=== PATIENT | female | born 1950 | race African-American/Black ===

== ENCOUNTER 2019-08-05 08:56 | Inpatient (IN) | payer BC, MEDICARE ==
[2019-08-02 09:34] LABS: ABSOLUTE BASOPHILS 0.1 thou/uL (0.0-0.2); ABSOLUTE EOSINOPHILS 0.1 thou/uL (0.0-0.7); ABSOLUTE LYMPHOCYTES 1.9 thou/uL (0.8-5.3); ABSOLUTE MONOCYTES 0.7 thou/uL (0.0-1.2); ABSOLUTE NEUTROPHILS 8.6 thou/uL (1.6-8.1); EOSINOPHILS 1.1 %; HEMOGLOBIN 12.5 gm/dL (12.0-15.0); LYMPHOCYTES 16.7 %; MCH 26.8 pg (26.0-34.0); MCHC 33.9 g/dL (28.0-37.0); MCV 79.2 fL (80.0-100.0); MONOCYTES 6.3 %; MPV 9.9 fl. (7.2-11.1); NUCLEATED RBCS 0 /100WBC; PLATELET COUNT* 219 thou/uL (150-400); POLYS 74.9 %; RBC 4.68 mil/uL (4.20-5.00); RDW-CV 14.4 % (10.5-14.5); WBC 11.5 thou/uL (4.0-11.0)
[2019-08-02 09:41] LABS: CALCIUM 9.5 mg/dL (8.5-10.1); CREATININE 1.3 mg/dL (0.6-1.3); POTASSIUM 3.5 mmol/L (3.5-5.1)
[2019-08-02 09:46] LABS: ALBUMIN 3.1 g/dL (3.4-5.0); TOTAL BILIRUBIN 0.4 mg/dL (<0.1-1.0); TOTAL PROTEIN 7.1 g/dL (6.4-8.2)
[2019-08-03 02:07] LABS: GLYCOHEMOGLOBIN (HGB A1C) 7.5 % (4.8-5.6)
[~2019-08-05] VITALS: Ht 165.1 cm; Wt 140.6 kg
[~2019-08-05 08:56] MED LIST: AMBIEN 5 MG TABL5 MG PO; AMLODIPINE BESY10 MG PO; CYMBALTA60 MG PO; HUMALOG100 UNIT/1 SUBQ; LANTUS100 UNIT/M SUBQ; LOPRESSOR50 PO; PROTONIX40 M1 PO; ROSUVASTATIN CA10 MG PO; SYNTHROID100 MC1 PO; TRAMADOL 50 MG50 MG PO; VENTOLIN HFA 1818 GM INH; ZESTORETIC 20-1 EAC2 PO
[2019-08-05 09:30] VITALS: BP 154/88
--- NOTE | 2019-08-05 10:59 | EKG ---
[place] [address] ELECTROCARDIOGRAM REPORT Name: CALABRESEJAYANTNEGRITA E Room: [facility]#: [id number] Admission: 08/05/19 Attend Phys: Priya Mendoza Discharge: Date of : 54 Report #: [id number] THIS REPORT FOR: //name// [facility] Test Date: 2019-08-02 Test Time: 09:29:50 Pat Name: NEGRITA CALABRESE Department: Room: Gender: F Skip Locator: UNKNOWN : 1950 Requested By: Michael Hook Order Number: [id number] Denis MD: Koby Paz Measurements Intervals [place] Rate: 79 P: 35 ND: 234 QRS: -8 QRSD: 112 T: 91 QT: 445 QTc: 511 Interpretive Statements Sinus rhythm Atrial premature complexes Prolonged ND interval Consider anterior infarct No previous ECG available for comparison Electronically Signed On 08-05-2019 10:59:02 CDT by Koby Paz [email or web address] <ELECTRONICALLY SIGNED> By: Koby Paz MD, [facility] 08/05/19 1059 0929 09 Koby Paz MD, FACC /EPI
[2019-08-05 15:27] VITALS: BP 156/56
--- NOTE | 2019-08-05 15:56 | NUR ---
PT ADMITTED TO UNIT WITH LT KNEE REPLACEMENT. PT ALERT AND ORIENTED AND DROWSY. PT ON 3 LITERS O2 WITH CAPNO IN PLACE. LUNGS CLEAR AND DIMINISHED. HEART RATE REGULAR, HX HTN. PULSES 2+ ALL EXREMITIES. TA HOSE ON BILAT. ICE PACK TO LT KNEE. SCD IN PLACE. INCISION LT KNEE, DRESSING C/D/I. FALL RISK PRECAUTIONS IN PLACE. HOURLY ROUNDING COMPLETED. WILL CONTINUE TO MONITOR.
--- NOTE | 2019-08-05 16:13 | OP ---
[facility] [address] [place] [address] OPERATIVE REPORT Name: NEGRITA CALABRESE Room: [address] IN ..#: [id number] Admission: 08/05/19 Attend Phys: Priya Mendoza Discharge: Date of : 54 Report #: [id number] THIS REPORT FOR: //name// CC: Sky Hook DATE OF SERVICE: 08/05/2019 Cisco Sullivan DO dictating operative report on behalf of Dr. Sky Johnson. PREOPERATIVE DIAGNOSIS: Left knee severe degenerative joint disease. POSTOPERATIVE DIAGNOSIS: Left knee severe degenerative joint disease. OPERATION PERFORMED: Left total knee arthroplasty. SURGEON: Sky Johnson DO. ASSISTANTS: Sandra Wade PA-C; Cisco Sullivan DO; and Rowdy Melara DO. Multiple assistants were required throughout the procedure due to the patient's morbid obesity, body habitus. Skilled assistants were required for retraction and assistance as well as closure. ANESTHESIA: General plus local injection. ANTIBIOTICS: 3 grams IV Ancef given preoperatively. ESTIMATED BLOOD LOSS: 150 mL. COMPLICATIONS: None. SPECIMENS: None. COMPLICATIONS: None. CONDITION: Stable. DISPOSITION: PACU to Med/Surg floor. OPERATIVE INDICATIONS: The patient is a pleasant 68-year-old female who has been followed in orthopedic clinic regarding her left knee pain. Radiographs which were consistent with severe degenerative changes with loss of joint space, subchondral sclerosis, osteophytic lipping. She had undergone conservative treatment in the last several years with [place] [address] OPERATIVE REPORT Name: NEGRITA CALABRESE Room: [address] IN [facility].#: [id number] Admission: 08/05/19 Attend Phys: Priya Mendoza Discharge: Date of : 54 Report #: [id number] as well as intra-articular injections and activity modifications and therapies. Despite turn all these things, she get progressive symptoms, which are interfering with her activities of daily living. We did discuss with her total knee arthroplasty including the risks and benefits as well as the other treatment alternatives. Informed consent was signed and attached to the chart. DESCRIPTION OF PROCEDURE: The patient was identified in the preoperative holding area where the left knee was confirmed to be the operative site and marked. She was transferred to the operating suite and placed on the operating table in supine position where general anesthesia was then induced. A well-padded pneumatic tourniquet was placed in the left proximal thigh. This was inflated at 295 mmHg throughout the procedure for a total of 53 minutes. The left lower extremity was then sterilely prepped and draped in the usual fashion. A time-out was then performed confirming our safety checklist had been completed and all the OR personnel were in agreement. A standard midline incision was marked out over the anterior aspect of the knee. Sharp dissection was then carried down through the skin and subcutaneous tissue down to the level of the capsule. A new scalpel was then used to make a standard medial parapatellar arthrotomy. A large portion of the infrapatellar fat pad was excised at this time. The patella was then everted. The knee was hyperflexed. Hohmann retractors were placed. We gained access to her femur intramedullary canal with the large drill. Our distal femur cutting block was then placed within the intramedullary guide set to resect 10 mm from the distal femur at 5 degrees of valgus. This was pinned into position and the cut was made through the capture block. Bony wafers were then removed. Attention was then taken to the proximal tibia. The extramedullary tibial guide was aligned in all planes. This was set to resect 8 mm from the lateral high side. The cutting block was pinned into position. Appropriate retractors were placed to protect the collateral ligaments as well as popliteal structures. The cut was then made through the capture block and the bony wafer was removed. At this time, we checked our extensor space with the 10 mm extension block, which was found to fit appropriately with some tightness medially. Therefore, all the pins were removed. At this time, we sized the distal femur. We decreased the amount of external rotation as there was more wear on her medial posterior condyle. The femur sized to a 67.5. The appropriate external rotation holes were drilled. The 4-in-1 cutting block was then impacted on to the distal femur. We then sequentially made our cuts through the block beginning with the anterior cut followed by the posterior condylar cut and then anterior and posterior chamfer cuts. These bony wafers were then removed. The box cutting guide was then impacted onto the distal femur and the reaming system was utilized to resect the bone for the box. The excess osteophytes from both the femur and the tibia were removed with a rongeur. The medial collateral ligament was released and utilized an 18 gauge needle, which did give a nice subtle release from the medial side. We then sized the proximal tibia to the appropriate size and the tibial baseplate trial was pinned into position into the appropriate rotation. The trial femur component was then impacted on to the distal femur followed by [address] [place] [address] OPERATIVE REPORT Name: NEGRITA CALABRESE Room: [address]#: [id number] Admission: 08/05/19 Attend Phys: Priya Mendoza Discharge: Date of : 54 Report #: [id number] sequential trialing of different sized spacers. Attention was taken to the patella. There were significant degenerative changes. Therefore, we did proceed with resurfacing. The osteophytes were removed with the rongeur. The Jammcard reaming system was utilized to a 14 mm thickness which left us with a nice flush cut surface. The patellar peg holes were then drilled through the guide and the patellar button was placed through full range of motion and found to have excellent tracking. At this time, the trial patella and femoral components were removed. The tibia was prepared for final implantation with the reamer and punch. The bony cut surfaces were then copiously irrigated. A small drill was used on the medial side of the tibial plateau to improve cement interdigitation as there was significant sclerotic bone here. The anesthetic cocktail was injected into the posterior capsular structures. The bone cement was mixed on the back table and applied to the back surface of the final components. The bony cut surfaces were dried and then the final components were impacted into position, beginning with the tibia, followed by the femur and finally put the patella button, which was clamped into position. All the excess bone cement was removed. At 10 mm spacer was trialed and found to be slightly loose, 12 mm was slightly tight in both flexion and extension; therefore, we did proceed with placing our 11 mm final spacer. This was locked into position with locking bar. The knee was copiously irrigated and vancomycin powder was sprinkled throughout. The tourniquet was deflated at this time. The knee was placed in 90 degrees of flexion and a layered closure was performed with #1 Vicryl suture on the capsular layer. This was then oversewn with a #1 Quill suture. A 2-0 Monocryl suture was used on the deep subcutaneous layer and superficial subcutaneous layers. A running 3-0 Stratafix was used on the subcuticular layer. Skin glue was applied and allowed to dry, followed by application of a sterile Mepilex dressing. Thigh high TA hose were applied over the incision. The patient was awakened from general anesthetic and found to have tolerated the procedure well and was transferred to the PACU. Sponge and needle counts reported correct for the OR personnel. ATTESTATION: Dr. Sky Johnson was present for all critical aspects of surgery. <ELECTRONICALLY SIGNED> By: Sky Johnson DO 08/05/19 1613 1341 [id number] Johnson DO /nt
--- NOTE | 2019-08-05 18:17 | NUR ---
PT REMAINED ALERT AND ORIENTED AND DROWSY. PAIN MEDS GIVEN ORDERED. PT HAS NOT GOTTEN OUT OF BED AT THIS TIME FALL RISK PRECAUTIONS IN PLACE. HOURLY ROUNDING COMPLETED. WILL CONTINUE TO MONITOR.
[2019-08-05 20:38] VITALS: BP 140/70
[2019-08-06] VITALS: BP 147/69
[2019-08-06 04:00] VITALS: BP 171/85
--- NOTE | 2019-08-06 04:08 | NUR ---
Assumed care of pt 08/05/19 at approx 1930. Pt remained A&Ox4 and drowsy throughout shift, VVS, pt requested and pain meds given as ordered, pt on 3L NC, Pt up to BS comode for toileting, assessments and hourly roundings completed, fall precautions maintained. Will continue to monitor.
[2019-08-06 05:03] LABS: HEMATOCRIT 33.7 % (37.0-47.0); HEMOGLOBIN 11.3 gm/dL (12.0-15.0)
--- NOTE | 2019-08-06 06:59 | NUR ---
DEFER TO PT, OT WILL EVAL WITH PT RECOMMENDATION
--- NOTE | 2019-08-06 07:02 | NUR ---
REPORT GIVEN TO [facility]T BELLA IN [facility] AT 0700. PT TO BE TRANSFER TO [facility] THIS AM.
[2019-08-06 09:15] VITALS: BP 165/73
--- NOTE | 2019-08-06 11:23 | NUR ---
SPOKE WITH PT.AND AT BEDSIDE. PT. MOANING IN PAIN. SAID HER PAIN MED IS NOT WORKING. SAID HE WILL BE WITH HER FOR 1-2 DAYS BUT THEN HAS TO GO BACK TO WORK. HAS 10 STEPS TO GET TO MAIN LIVING AREA. PT.HAS AN OLD WALKER IN THE BASEMENT. WANTS A NEW WALKER. CM WILL CHECK WITH [facility]. DOES NOT USE ANY DME. NO HX OF HOME HEALTH. STARTED TO DISCUSS SNF PLAN B IF NOT DOING WELL IN THERAPY IN THE NEXT FEW DAYS. SHE SAID 'I DON'T WANT TO HEAR ANTYTHING YOU HAVE TO SAY ABOUT SNF [facility] I'M NOT GOING TO ONE.' SHE ALSO SAID IT WAS HER DECISION TO MAKE ON WHEN SHE GOES HOME. EXPLAINED THAT HER INSURANCE WILL NOT USUALLY AUTHORIZE PEOPLE TO STAY OVER A CERTAIN AMOUNT OF DAYS. AGAIN SHE SAID 'THAT IS MY DECISION TO MAKE.'
[2019-08-06 16:00] VITALS: BP 164/75
--- NOTE | 2019-08-06 17:09 | NUR ---
[facility] CARE OF PATIENT AYT APPROX 0900, TRANSFERRED FROM [facility]. ALERT AND OREITNED X4. ASSESSMENT COMPLETED AND CHARTED. VSS ON 3 LITERS 02. PATIENTS COMPLAINTS OF PAIN MANAGED WITH ORAL OXY IR AND NAPROXEN. ACCUCHECKS AND INSULIN GIVEN PER DEC. PATIENT UP WITH ASSIST OF 1-2 TO USE BEDSIDE COMMODE. WORKED WITH PT AND OT TODAY. UP TO CHAIR TODAY. NO OTHER COMPLAINTS THIS SHIFT. FALL PRECAUTIONS IN PLACE. CALL LIGHT WITHIN REACH. HOURLY ROUNDS COMPLETED. CALL LIGHT IN REACH. NURSING WILL CONTINUE TO MONITOR.
[2019-08-06 20:00] VITALS: BP 171/86
[2019-08-07] VITALS: BP 156/84
[2019-08-07 04:00] VITALS: BP 148/75
--- NOTE | 2019-08-07 04:35 | NUR ---
MEDS GIVEN ORDERED. OXY IR 15MG GIVEN EVERY 3-4 HOURS PER PT REQUEST. UP TO THE COMMODE WITH MAX ASSIST. DRESSING TO LT KNEE C/D/I. TA JACKSON IN PLACE. AT BEDSIDE. WILL CONTINUE TO MONITOR.
[2019-08-07 05:03] LABS: HEMATOCRIT 30.8 % (37.0-47.0); HEMOGLOBIN 10.6 gm/dL (12.0-15.0)
[2019-08-07 07:40] VITALS: BP 131/88
[2019-08-07 16:34] VITALS: BP 145/65
--- NOTE | 2019-08-07 16:36 | NUR ---
ASSUMED CARE OF PATIENT AT APPROX 0730. ALERT AND ORIENTED X4. ASSESSMENT COMPLETED AND CHARTED. VSS ON ROOM AIR. PAIN MANAGED WITH OXY IR EVERY 3 HOURS. PATIENT UP WITH ASSIST USING GAIT BELT AND WALKER TO USE THE BATHROOM. WORKING WELL WITH THERAPIES AND PROGRESSING TOWARD GOALS. FALL PRECAUTIONS IN PLACE. CALL LIGHT WITHIN REACH. HOURLY ROUNDS COMPLETED. NURSING WILL CONTINUE TO MONITOR.
[2019-08-07 22:20] VITALS: BP 145/53
--- NOTE | 2019-08-08 04:52 | NUR ---
VSS RA. MEDS GIVEN ORDERED. PAIN MANAGED WITH OXY IR EVERY 3-4 HOURS. PT UP TO THE BATHROOM USING WALKER. AT BEDSIDE. WILL CONTINUE TO MONITOR.
[2019-08-08 07:20] VITALS: BP 140/63
--- NOTE | 2019-08-08 15:50 | NUR ---
CM CALLED IN PRESCRIPTION FOR ELIQUIS, WRITTEN, TO PT.S PHARMACY [facility] IN [place]. COPAY IS $35. PT.INFORMED. DISCUSSED HOME HEALTH AT DISCHARGE. SHE WANTS TO THINK ABOUT IT AND WILL LET MARYAN KNOW IN AM. POSSIBLE DISCHARGE TOMORROW. ORDER FOR WALKER OBTAINED. [facility] OK'D FOR PT.TO RECEIVE A WALKER FROM OUR THERAPY CONSIGNMENT CLOSET. FAXED ORDER AND FACE SHEET TO [facility]/[phone] AND GAVE ORIGINAL TO THERAPY.
[2019-08-08 16:00] VITALS: BP 125/56
--- NOTE | 2019-08-08 17:03 | NUR ---
PT REMAINED ALERT AND ORIENTED. PT RESTING IN ROOM. PAIN MEDS GIVEN ORDERED. FALL RISK PRECAUTIONS IN PLACE. HOURLY ROUNDING COMPLETED. WILL CONTINUE TO MONITOR.
[2019-08-08 21:04] VITALS: BP 130/47
--- NOTE | 2019-08-09 05:11 | NUR ---
ASSUMED CARE OF PT 08/08/19 APPROX 1930, PT REMAINED A&OX4 THROUGHOUT SHIFT, ON ROOM AIR, PAIN MEDS REQUESTED AND ADMINISTERED ORDERED, FALL PRECAUTIONS IN PLACE, PT UP WITH ASSISTANCE TO BR, PT SLEEPING WELL. WILL CONTINUE TO MONITOR.
[2019-08-09] MEDS ORDERED: COLACE 100 MG100 MG PO (08:54)
[2019-08-09] MEDS ORDERED: TRAMADOL 50 MG50 MG PO (08:54)
[2019-08-09] MEDS ORDERED: NAPROXEN375 MG PO (08:54)
[2019-08-09] MEDS ORDERED: ANECREAM5 GM TOP (08:54)
[2019-08-09] MEDS ORDERED: ELIQUIS5 MG PO (08:54)
[2019-08-09] MEDS ORDERED: PAIN RELIEVER500 MG PO (08:54)
[2019-08-09] MEDS ORDERED: OXYCODONE HCL 55 MG PO (08:55)
[2019-08-09 09:38] VITALS: BP 121/48
[2019-08-09 11:59] VITALS: BP 121/48
--- NOTE | 2019-08-09 12:00 | NUR ---
DISCUSSED DISCHARGE WITH PT.AND . REMINDED THEM COPAY FOR ELIQUIS WAS $35. PT.ASKED IF SHE COULD HAVE SOME ASSISTANCE WITH THAT. CALLED IN ELIQUIS PRESCRIPTION COUPON CARD TO PHARMACY. THEY RAN NUMBERS BUT SAID IT DID NOT GO THRU SO CARD COULD NOT BE USED WITH HER INS. PT.INFORMED. DISCUSSED HOME HEALTH. WANTED TO HAVE [facility]. EXPLAINED THIS WAS JUST AN OUTPT. THERAPY. PT.ASKED THAT I CALL AND SEE IF THEY DO HOME HEALTH. CALLED [facility] AT [phone]. THEY SAID THEY ONLY DO OUTPT. EXPLAINED TO PT. SHE SAID SHE WANTED TO CHOSE WHICH HOME HEALTH AFTER SHE CALLED THEM AND SPOKE WITH SEVERAL. GAVE HER NAMES AND NUMBERS OF HH AGENCIES. GAVE HER MY CARD TO CALL MONDAY ON WHICH ONE SHE DECIDED ON. NOTIFIED 'S NURSE THAT THIS IS WHAT PT.WANTED. LEFT VM. DAUGHTER CALLED AND SAID TO SET MOM UP WITH [facility] AND SHE WOULD TELL THEM THAT IS WHO WILL SEE HER FOR HOME HEALTH. SHE SAID HER PARENTS JUST NEED TO BE NUGED A BIT. FAXED REFERRAL AND DISCHARGE ORDERS TO [facility] [phone].
--- NOTE | 2019-08-09 15:58 | NUR ---
PT DISCHARGED TO HOME WITH HOME HEALTH AND LEFT AT 1555 BY WHEELCHAIR WITH NURSING STAFF AND . IV OUT. PAPER SCRIPTS AND CARE NOTES SENT. PERSONAL BELONGINGS SENT WITH PT. DRESSING C/D/I. PT STABLE UPON DISCHARGE
--- NOTE | 2019-08-11 10:59 | OP ---
[address] [address] OPERATIVE REPORT Name: NEGRITA CALABRESE Room: [address] IN .R.#: [id number] Admission: 08/05/19 Attend Phys: Priya Mendoza Discharge: 08/09/19 Date of : 54 Report #: [id number] THIS REPORT FOR: //name// CC: Sky Hook DATE OF SERVICE: 08/05/2019 ADDENDUM: IMPLANTS: Biomet Vanguard system was used with the following components: 1. A size 75 mm tibial baseplate. 2. A size 67.5 mm posterior stabilized femoral component. 3. A size 31 x 8 mm asymmetrical patellar component. 4. Two bags of Palacos bone cement. <ELECTRONICALLY SIGNED> By: Sky Johnson DO 08/11/19 1059 1643 [id number] Johnson DO /nt
--- NOTE | 2019-08-13 11:00 | NUR ---
RECEIVED CALL FROM PT'S DAUGHTER,STATING HER MOM DID NOT LIKE [facility] AND WANTED TO CHANGE TO [facility]. CALLED [facility]. FIELD AUTO APPRAISER READ RN NOTE AND SAID THEY DID NOT START SERVICE PT.WOULD NOT LET THEM COME INTO THE HOME, MONDAY WHEN THEY ARRIVED AT HER DOOR. CALLED [facility]. SHE SAID SINCE IT HAD BEEN >48 HRS POST DISCHARGE, THEY WOULD NEED NEW HOME HEALTH ORDERS. FAXED H&P,OP REPORT,MED LIST AND NEW HOME HEALTH ORDERS FOR PT/OT TO DANA AT [facility] [phone]. INFORMED PT.S DAUGHTER.
== END 2019-08-09 15:55 | disposition home health service (06) | DRG 470 ==
LOC: M.SUR 08:56 → M.ORTHSURG 13:31 → M.TBA 13:31 → M.3W 15:29 → M.ORTHSURG 08-06 07:51
PROVIDERS: Orthopaedic Surgery; ADMIT Internal Medicine
PROC: 0SRD0J9 Replacement of Left Knee Joint with Synthetic Substitute, Cemented, Open Approach (ICD-10-PCS; principal; 2019-08-05)
DX: M17.12 Unilateral primary osteoarthritis, left knee (principal); Z68.43 Body mass index [BMI] 50.0-59.9, adult; E11.9 Type 2 diabetes mellitus without complications; E66.01 Morbid (severe) obesity due to excess calories; F32.9 Major depressive disorder, single episode, unspecified; G89.29 Other chronic pain; J45.909 Unspecified asthma, uncomplicated; E78.5 Hyperlipidemia, unspecified; K76.0 Fatty (change of) liver, not elsewhere classified; K70.9 Alcoholic liver disease, unspecified; K59.00 Constipation, unspecified; G47.00 Insomnia, unspecified; I10 Essential (primary) hypertension; E03.9 Hypothyroidism, unspecified; Z79.84 Long term (current) use of oral hypoglycemic drugs; Z85.51 Personal history of malignant neoplasm of bladder; Z88.8 Allergy status to other drugs, medicaments and biological substances

== ENCOUNTER 2019-10-18 06:32 | Inpatient (IN) | payer BC, MEDICARE ==
[~2019-10-18] VITALS: Ht 167.6 cm; Wt 131.5 kg
[~2019-10-18 06:32] MED LIST changes: +ANECREAM5 GM TOP; +COLACE 100 MG100 MG PO; +ELIQUIS5 MG PO; +NAPROXEN375 MG PO; +OXYCODONE HCL 55 MG PO; +PAIN RELIEVER500 MG PO
[2019-11-11] MEDS ORDERED: MECLIZINE HCL25 M1 PO (14:55)
[2019-11-11] MEDS ORDERED: VALIUM2 MG PO (14:56)
[2019-11-11] MEDS ORDERED: COLACE100 MG PO (14:57)
[2019-11-11] MEDS ORDERED: DULOXETINE HCL30 MG PO (14:58)
[2019-11-11] MEDS ORDERED: LEVOXYL88 MCG PO (14:59)
[2019-11-11] MEDS ORDERED: AMBIEN 10 MG TA10 MG PO (15:00)
[2019-11-21 09:05] LABS: ABSOLUTE EOSINOPHILS 0.1 thou/uL (0.0-0.7); ABSOLUTE LYMPHOCYTES 1.2 thou/uL (0.8-5.3); ABSOLUTE MONOCYTES 0.6 thou/uL (0.0-1.2); ABSOLUTE NEUTROPHILS 7.4 thou/uL (1.6-8.1); BASOPHILS 0.5 %; EOSINOPHILS 1.6 %; HEMATOCRIT 34.5 % (37.0-47.0); HEMOGLOBIN 11.7 gm/dL (12.0-15.0); LYMPHOCYTES 12.9 %; MCH 25.5 pg (26.0-34.0); MONOCYTES 6.1 %; MPV 8.3 fl. (7.2-11.1); NUCLEATED RBCS 0 /100WBC; PLATELET COUNT* 266 thou/uL (150-400); POLYS 78.9 %; RDW-CV 15.8 % (10.5-14.5); WBC 9.3 thou/uL (4.0-11.0)
[2019-11-21 09:19] LABS: APTT 26.8 Seconds (25.0-31.3); PROTIME 9.8 Seconds (9.20-11.50)
[2019-11-21 09:22] LABS: ALBUMIN 3.2 g/dL (3.4-5.0); CALCIUM 8.5 mg/dL (8.5-10.1); CREATININE 1.3 mg/dL (0.6-1.3); POTASSIUM 3.7 mmol/L (3.5-5.1); TOTAL BILIRUBIN 0.3 mg/dL (<0.1-1.0); TOTAL PROTEIN 7.3 g/dL (6.4-8.2)
[2019-11-21 11:53] LABS: ESR (SEDRATE) 50 mm/hr (0-30)
[2019-11-22 02:07] LABS: GLYCOHEMOGLOBIN (HGB A1C) 7.4 % (4.8-5.6)
[2019-11-25 09:50] VITALS: BP 143/78
[2019-11-25 15:00] VITALS: BP 141/70
--- NOTE | 2019-11-25 17:25 | OP ---
[address] [address] OPERATIVE REPORT Name: NEGRITA CALABRESE Cinthya Room: [address] IN .R.#: [id number] Admission: 11/25/19 Attend Phys: Priya Mendoza Discharge: Date of : 54 Report #: [id number] THIS REPORT FOR: //name// cc: Yair Paulino Steven F. DO ~ THIS REPORT FOR: //name// CC: Yair Hook DICTATED BY: Cody Kramer DO DATE OF SERVICE: 11/25/2019 PREOPERATIVE DIAGNOSIS: Right knee advanced degenerative joint disease. POSTOPERATIVE DIAGNOSIS: Right knee advanced degenerative joint disease. PROCEDURE PERFORMED: Right total knee arthroplasty. SURGEON: Sky Johnson DO PRACTICING UROLOGIST: NICK Betancur SECOND MARKET DEVELOPMENT EXECUTIVE: Cody Kramer DO THIRD MARKET DEVELOPMENT EXECUTIVE: Tristan Negro DO ANESTHESIA: General. ESTIMATED BLOOD LOSS: 175 mL. COMPLICATIONS: None. CONDITION: Stable to PACU. ORTHOPEDIC IMPLANTS: Biomet Vanguard total knee system was utilized with the following components. 1. A size 75 mm tibial baseplate. 2. Size 67.5 mm posterior stabilized femoral component. 3. 12 mm posterior stabilized polyethylene insert. 4. 34 mm asymmetric patella. INDICATIONS FOR PROCEDURE: The patient is a pleasant 68-year-old female who has been followed in the outpatient orthopedic clinic regarding longstanding bilateral knee pain. She has known degenerative joint disease, bilateral knees. [facility] [address] [place] [address] OPERATIVE REPORT Name: NEGRITA CALABRESE Room: [address] IN .R.#: [id number] Admission: 11/25/19 Attend Phys: Priya Mendoza Discharge: Date of : 54 Report #: [id number] She has previously undergone left total knee arthroplasty with good success. She presents today for right total knee arthroplasty. She has previously tried and failed conservative care including home exercise program, NSAIDs, intraarticular corticosteroid injections and activity modifications. Despite conservative measures, she has continued to have considerable right knee pain that is affecting her quality of life. We have now recommended surgical intervention with right total knee arthroplasty. Risks, benefits, complications and alternatives were discussed with the patient in detail. Risks include but are not limited to bleeding, PE, DVT, infection, continued knee pain, failure of orthopedic implants, periprosthetic fracture, need for repeat surgery and complications of anesthesia. The patient expressed understanding and wished to proceed. DESCRIPTION OF PROCEDURE: The patient was transferred to the operating suite and placed on the operating table in supine position. She was given the benefit of general anesthesia. A well-padded pneumatic tourniquet was placed on the right upper thigh. The right lower extremity was then prepped and draped in the usual sterile fashion. A timeout was taken to confirm the appropriate patient identification, operative site and procedure to be performed. All in the room were in agreement with the timeout. Procedure began by performing an anterior midline incision longitudinally down the right knee. Dissection was carried down sharply to the level of the extensor mechanism. A fresh scalpel blade was then used to perform a medial parapatellar arthrotomy. A subperiosteal sleeve was developed along the medial tibia. Infrapatellar fat pad was sharply excised. Retractors were placed. The intramedullary drill was then used to obtain access to the femoral medullary canal. The intramedullary guide was then placed, set to resect 12 mm of bone and 5 degrees of valgus. The cut was performed through the cutting block. Attention was then addressed to the tibia where intramedullary guide was placed, referencing the medial third of the tubercle, tibial crest in the middle of the talus. The tibial cutting block was pinned into place, set to resect 8 mm of bone from the high lateral side and the appropriate rotation and alignment. Proximal tibial cut was then performed. An extension block was then checked to ensure adequacy of bony resection. The knee achieved full extension. It was slightly tight on the medial side, but overall demonstrated appropriate resection of bone. At this point, we used an 18-gauge spinal needle to perform a pie-crusting to partially release the medial MCL. The AP sizer was then used to size the distal femur, which measured a 67.5. The 4-in-1 cutting block was then pinned into place in 3 degrees of external rotation compared to the posterior condylar axis. Anterior, posterior chamfer cuts were performed. During all of our bony resection, retractors were used to protect vital structures. The excess bone was removed. Electrocautery was used to excise the menisci as well as the ACL and PCL. The guide was then malleted [address] [address] OPERATIVE REPORT Name: NEGRITA CALABRESE Room: [address] IN M.R.#: [id number] Admission: 11/25/19 Attend Phys: Priya Mendoza Discharge: Date of : 54 Report #: [id number] into position to ream our Cam box. The reamer was then used to remove the bone in the central portion of the femur for the Cam box. Trial components were then malleted in position. The tibia was measured to be a size 75. This was pinned into place in appropriate rotation and alignment followed by the femoral component. A 12-mm polyethylene was then inserted. The knee was taken through range of motion and found to be well balanced in full flexion, mid flexion and full extension with appropriate varus and valgus throughout. There was appropriate anterior drawer test when the knee was flexed to 90 degrees. The patella was then everted and reamed using a cylindrical reamer. The peg holes were then drilled. A trial 34 mm button was placed. The knee was again taken through a range of motion. The patella was noted to track well. Trial components were then removed. The tibia was reamed and punched for the tibial tray. The knee was thoroughly irrigated using pulsatile lavage. A posterior capsule was injected with a cocktail. Cement was mixed and applied to the cut surfaces of the bone as well as back surface of the implant. The final implants were then impacted into position followed by a final 12 mm polyethylene. The knee was again taken through range of motion after the cement hardened and the knee was found to be well balanced in full flexion, mid flexion and full extension. There was appropriate varus and valgus stress test as well as an appropriate anterior drawer. The patella was noted to track well. Knee was again irrigated. Topical vancomycin was applied to the knee. The capsule was then closed using a combination of #1 Vicryl, followed by #1 running Stratafix. Subcutaneous tissue was closed using 2-0 Monocryl. Final skin closure was performed using a 3-0 running Stratafix subcuticular followed by skin glue. Sterile dressings were applied. The patient was transferred to PACU in stable condition. ATTESTATION: Dr. Johnson was present and scrubbed in through the entire procedure. <ELECTRONICALLY SIGNED> By: Sky Johnson DO 11/25/19 1725 1320 [id number] paducahcecilio Johnson DO /nt
[2019-11-25 20:51] VITALS: BP 145/75
[2019-11-26] VITALS: BP 163/79
[2019-11-26 03:54] VITALS: BP 154/67
[2019-11-26 05:46] LABS: HEMATOCRIT 30.6 % (37.0-47.0); HEMOGLOBIN 10.2 gm/dL (12.0-15.0)
[2019-11-26 08:30] VITALS: BP 176/51
[2019-11-26 16:00] VITALS: BP 168/59
[2019-11-26 19:50] VITALS: BP 163/69
[2019-11-27 07:20] VITALS: BP 171/85
[2019-11-27 09:50] LABS: HEMATOCRIT 27.6 % (37.0-47.0); HEMOGLOBIN 9.5 gm/dL (12.0-15.0)
[2019-11-27 16:00] VITALS: BP 157/77
[2019-11-27 21:00] VITALS: BP 158/68
[2019-11-28] MEDS ORDERED: ELIQUIS5 MG PO (10:06)
[2019-11-28] MEDS ORDERED: OXYCODONE HCL 55 MG PO (10:06)
[2019-11-28 11:10] VITALS: BP 148/68
[2019-11-28 16:26] VITALS: BP 146/64
[2019-11-28 20:00] VITALS: BP 130/106
[2019-11-29 08:55] VITALS: BP 158/89
[2019-11-29 11:50] VITALS: BP 158/98
[2019-11-29 12:05] VITALS: BP 158/98
[2019-11-29 12:17] VITALS: BP 158/98
[2019-11-29] MEDS ORDERED: ASPIRIN325 PO (14:16)
== END 2019-11-29 16:40 | disposition home health service (06) | DRG 470 ==
LOC: M.PRE 06:32 → M.TBA 11-25 08:22 → M.PRE 11-25 10:16 → M.ORTHSURG 11-25 13:10 → M.TBA 11-25 13:10 → M.PRE 11-25 14:21 → M.ORTHSURG 11-25 15:03 → M.PRE 11-25 17:08 → M.ORTHSURG 11-29 16:40
PROVIDERS: Orthopaedic Surgery; ADMIT Internal Medicine
PROC: 0SRC0J9 Replacement of Right Knee Joint with Synthetic Substitute, Cemented, Open Approach (ICD-10-PCS; principal; 2019-11-25)
DX: M17.11 Unilateral primary osteoarthritis, right knee (principal); D62 Acute posthemorrhagic anemia; Z68.42 Body mass index [BMI] 45.0-49.9, adult; E11.9 Type 2 diabetes mellitus without complications; E03.9 Hypothyroidism, unspecified; E78.5 Hyperlipidemia, unspecified; I10 Essential (primary) hypertension; J45.909 Unspecified asthma, uncomplicated; G89.29 Other chronic pain; E66.01 Morbid (severe) obesity due to excess calories; K74.60 Unspecified cirrhosis of liver; F32.9 Major depressive disorder, single episode, unspecified; Z96.652 Presence of left artificial knee joint; Z88.8 Allergy status to other drugs, medicaments and biological substances; Z79.4 Long term (current) use of insulin; Z85.51 Personal history of malignant neoplasm of bladder